=== PATIENT | male | born 1990 | race Caucasian/White ===

== ENCOUNTER 2025-02-28 19:31 | Emergency (ER) | payer OTHER, SELFPAY ==
[2025-02-28 19:34] VITALS: BMI 39.9
[2025-02-28 20:12] VITALS: BP 167/97; PULSE 70; RESP 18; TEMP 37.4; O2SAT 96
--- NOTE | 2025-02-28 20:17 | EDNOTE_ITS ---
<Statement entered by Louann Ocampo MD - 03/02/25 18:56> As co-signing physician, I was present and available for consult prn. I concur with the plan and care as documented by the midlevel provider. Lower Extremity Injury RME/HPI General Chief Complaint: Extremity Injury, Lower Stated Complaint: LACERATION R HAND AND INGRY BILAT KNEES Time Seen by Provider: 02/28/25 20:17 Source: patient Arrival date/time: 02/28/25 19:31 Mode of arrival: ambulatory Limitations: no limitations RME / HPI RME / HPI Narrative: 34-year-old male presents to the ED with a complaint of right wrist and right hand pain as well as left knee and right knee pain status post falling while jumping from his boat attempting to jump into a truck. complaint: knee injury (Left and right knees.) and fall Onset (ago): hour(s) (1100 today.) Type of Injury: blunt Place: other (At the [facility]) Severity: moderate Severity scale (1-10): 5 Exacerbating factors: weight bearing Context: jumping Related Data Previous Rx's ?Medication ?Instructions ?Recorded ibuprofen 800 mg tablet 800 mg PO Q8H PRN pain #30 t abs 02/28/25 Allergies Allergy/AdvReac Type Severity Reaction Status Date / Time No Known Allergies Allergy Verified 02/28/25 19:38 Review of Systems Constitutional Constitutional: Reports system reviewed and no additional complaints, except as documented Eyes Eyes: Reports system reviewed and no additional complaints, except as documented, Denies dry eyes, Denies exophthalmos and Reports floaters Cardiovascular Cardiovascular: Denies chest pain with activity and Denies claudication ED Exam Narrative Physical exam: The right and positive for a 1 cm laceration, it is superficial, it is well- approximated. There is tenderness to palpation of the right hand and the wrist. The left and right knees are also tender to palpation and both knees have abrasions. Patient upon ambulating demonstrates some pain. Neurovascular is intact and there is no apparent bony deformity to the knees. General Limitations: Present no limitations General appearance: Present alert and in no apparent distress Head Head exam: Present atraumatic Eye Eye exam: Present normal appearance and EOMI ENT ENT exam: Present normal exam, normal oropharynx and mucous membranes moist Neck Neck exam: Present normal inspection, full ROM and trachea midline Chest Chest inspection: Present normal inspection and symmetric chest wall rise Extremities Exam Extremities exam: Present normal inspection, full ROM, tenderness (Tenderness to palpation is the right wrist and hand. There is no apparent bony deformity present.) and other (There is tenderness to palpation of both the right and left knee as well as an abrasion present. There is no apparent bony deformity.) Back Exam Back exam: Present normal inspection and full ROM Neurological Exam Neurological exam: Present alert and oriented X3 Psychiatric Psychiatric exam: Present normal affect and normal mood Skin Skin exam: Present warm, dry, intact and normal color Course Course Course Narrative: Patient will have an x-ray of both knees the right hand and the right wrist. Patient will also have 1 [place] for wrist pain and tenderness and I will glue the laceration. Quality Measures none (None) Orders Category Date Time Status Wound Care NOW Care 02/28/25 20:23 Active XR hand comp RT min 3V Stat Exams 02/28/25 20:23 Completed XR knee LT 3V Stat Exams 02/28/25 20:23 Completed XR knee RT 3V Stat Exams 02/28/25 20:23 Completed XR wrist RT 2V Stat Exams 02/28/25 20:23 Completed HYDROcodone/APAP 10/325 [[place] 10/325] Med 02/28/25 20:23 Discontinued 1 tab PO X1 ONE Vital Signs Vital signs: Vital Signs Temperature 99.3 F 02/28/25 20:12 Pulse Rate 70 02/28/25 20:12 Respiratory Rate 18 02/28/25 20:12 Blood Pressure 167/97 H 02/28/25 20:12 Pulse Oximetry (%) 96 02/28/25 20:12 Oxygen Delivery Method Room Air 02/28/25 20:12 Extremity Injury, Lower Patient data External records reviewed:: Other (specify) Clinical information provided by:: none (NA) Social determinants that could affect healthcare access:: none (NA) Patient has the following chronic illnesses:: No chronic illness How is presenting disease/condition affected by chronic disease/condition?: no chronic disease Evaluation data The following diagnostics were reviewed and interpreted by me:: radiology exam(s) Lab and/or radiology exams considered but not ordered:: Radiology results were negative Interpretation Summary: N/A Medications / Prescriptions Medications or Prescriptions considered but not ordered:: N/A Medication administrations:: Medication Administration History Discontinued Medications Hydrocodone Bitart/Acetaminophen (Hydrocodone/Apap 10/325 Tab) 1 tab PO X1 ONE Stop: 02/28/25 20:24 Last Admin: 02/28/25 20:56 Dose: 1 tab Documented By: Done Consultations Consultation(s) initiated? (list below): No Diagnosis Most likely diagnosis given after review of the tests above:: N/A Admission Indicated Admission indicated?: not indicated Admission Request Was there a request for admission?: No Disposition Plan Disposition Plan: Discharge Discharge Attestation Discharge Attestation: The patient and all family members were given an opportunity to ask questions and understood the discharge instructions. Discharge instructions specifically effects, indications for sooner follow up or return to the emergency department, and the expected course of current diagnosis. Patient condition: Stable Discharge Plan Plan Patient Disposition: HOME (Self Care) Discharge Disposition comment: Patient to be discharged Patient condition on transfer: Stable Prescriptions/Referrals Prescriptions/Med Rec: New ibuprofen 800 mg tablet 800 mg PO Q8H PRN (Reason: pain) Qty: 30 0RF Referrals: No Primary/Family,Physician [Primary Care Provider] - In 1 week Problem List Clinical Impression: Contusion of knee, Laceration of hand, Contusion of hand Patient/Caregiver Discharge Instructions Print Language: Divehi Stand Alone Forms: Ning Award Info., Patient Portal Info Letter PA/NATHAN Supervising Physician RADHA/NATHAN Supervising Physician: Damaris
--- NOTE | 2025-02-28 20:23 | XR_ITS ---
Examination: Right wrist 2 views TECHNIQUE: AP lateral right wrist 2 views. Date and time: February 28, 2025, 8:34 PM. INDICATIONS: Patient fell today with injury of the wrist, wrist pain. FINDINGS: Soft tissue swelling dorsal to the metacarpals with air density No acute wrist fracture No foreign body IMPRESSION: No acute wrist fracture
--- NOTE | 2025-02-28 20:23 | XR_ITS ---
Examination: Knee, right , 3 views Technique: Knee AP, lateral, oblique 3 views Date and time of exam: February 28, 2025 1828 hours INDICATIONS: Patient fell today with injury to the right knee, right knee pain. FINDINGS: No fracture or dislocation. No foreign body. IMPRESSION: No fracture or dislocation.
--- NOTE | 2025-02-28 20:23 | XR_ITS ---
Examination: Hand, right 3 views Technique: Hand AP, oblique, lateral 3 views Date and time of exam: February 28, 2025 8:28 PM INDICATIONS: Patient fell today with injury to the right hand, right hand pain. FINDINGS: Adequate bone density. No fracture. No dislocation. No foreign body. Soft tissue swelling dorsum of the hand with air density in the soft tissue IMPRESSION: No acute fracture.
--- NOTE | 2025-02-28 20:23 | XR_ITS ---
Examination: Knee, left , 3 views Technique: Knee AP, lateral, oblique 3 views Date and time of exam: February 28, 20252027 hours INDICATIONS: Patient fell today with injury of the knee, knee pain. FINDINGS: No fracture or dislocation. No foreign body. IMPRESSION: No fracture or dislocation.
[2025-02-28] MEDS: HYDROcodone/APAP 10/325 TAB PO (20:56)
== END 2025-02-28 22:22 | disposition home or self-care (01) ==
PROVIDERS: Emergency Provider Emergency Medicine
DX: S80.02XA Contusion of left knee, initial encounter (principal); S80.01XA Contusion of right knee, initial encounter; S61.411A Laceration without foreign body of right hand, initial encounter; M25.531 Pain in right wrist; W17.89XA Other fall from one level to another, initial encounter; Y93.39 Activity, other involving climbing, rappelling and jumping off; Y92.814 Boat as the place of occurrence of the external cause
CPT/HCPCS: 73100; 73130; 73562; 99283; A9270